=== PATIENT | female | born 2000 | race Hispanic/Latino ===

== ENCOUNTER 2020-05-10 11:07 | Emergency (ER) | payer OTHER, SELFPAY ==
[2020-05-10] MEDS ORDERED: KETOROLAC 60 MG VIAL (30MG/ML) ONE (11:59)
[2020-05-10 12:19] LABS: APPEARANCE,URINE Clear (CLEAR); BILIRUBIN,URINE Negative (NEGATIVE); COLOR,URINE Yellow (YELLOW); GLUCOSE, URINE (UA) Negative (NEGATIVE); KETONES,URINE Trace mg/dL (NEGATIVE); LEUKOCYTE ESTERASE ,URINE Trace (NEGATIVE); NITRATE,URINE Negative (NEGATIVE); OCCULT BLOOD,URINE Large (NEGATIVE); PROTEIN,URINE POS 1+ mg/dL (NEGATIVE)
[2020-05-10 12:26] LABS: HCG,QUAL RESULT NEGATIVE (NEGATIVE)
[2020-05-10 12:59] LABS: BACTERIA,URINE Few /HPF (None Seen); MUCUS,URINE Few LPF (None Seen); RBC,URINE 51-100 /HPF (0-1); SQUAMOUS EPITHELIAL CELL,UR Few /HPF (0-2)
[2020-05-10 13:04] LABS: WBC,URINE 0-1 /HPF (0-1); YEAST,URINE BUDDING Few /HPF (None Seen)
[2021-01-12] MEDS ORDERED: PREN-154 PO (02:45)
[2021-01-17] MEDS ORDERED: IBUP-2077 PO (09:22)
[2021-01-17] MEDS ORDERED: DOCU-116 PO (09:22)
== END 2020-05-10 13:47 | disposition home or self-care (01) ==
LOC: EDH 11:07
DX: M54.5 Low back pain (principal)
CPT/HCPCS: 72100; 76856; 81001; 81025; 96372; 99285; J1885

== ENCOUNTER 2020-05-16 01:38 | Emergency (ER) | payer OTHER ==
[2020-05-16 02:37] LABS: BASOPHILS % (AUTO) 0.5 % (0.0-5.0); EOSINOPHILS % (AUTO) 1.8 % (0.0-8.0); HEMATOCRIT 37.5 % (36-48); LYMPHOCYTES % (AUTO) 31.2 % (21.0-51.0); MEAN CORPUSCULAR HEMOGLOBIN 29.1 pg (27.0-33.0); MEAN CORPUSCULAR HGB CONC 32.8 g/dL (32.0-36.0); MEAN CORPUSCULAR VOLUME 88.9 fL (80-100); MONOCYTES % (AUTO) 5.2 % (3.0-13.0); NEUTROPHILS % (AUTO) 60.7 % (40.0-77.0); PLATELET COUNT (AUTO) 366 K/uL (130-400); RED BLOOD CELL COUNT(AUTO) 4.22 MIL/uL (4.00-5.50); RED CELL DISTRIBUTION WIDTH 13.7 % (11.0-15.5); WHITE BLOOD COUNT (AUTO) 12.8 K/uL (4.8-10.8)
[2020-05-16 02:45] LABS: CREATININE 0.7 mg/dL (0.5-1.5); POTASSIUM 4.3 mmol/L (3.5-5.1)
[2020-05-16 02:53] LABS: ALBUMIN 3.9 g/dL (3.5-5.0); BILIRUBIN,TOTAL 0.3 mg/dL (0.2-1.0)
[2020-05-16] MEDS ORDERED: KETOROLAC TROMETHAMINE 60 MG/2 ML VIAL ONE (02:55)
[2020-05-16 03:08] LABS: APPEARANCE,URINE Clear (CLEAR); BILIRUBIN,URINE Negative (NEGATIVE); COLOR,URINE Yellow (YELLOW); GLUCOSE, URINE (UA) Negative (NEGATIVE); KETONES,URINE Negative (NEGATIVE); LEUKOCYTE ESTERASE ,URINE Negative (NEGATIVE); NITRATE,URINE Negative (NEGATIVE); OCCULT BLOOD,URINE Large (NEGATIVE); PH,URINE 6.5 (5.0-8.0); PROTEIN,URINE Negative (NEGATIVE); UROBILINOGEN,URINE 0.2 mg/dL (0.2-1.0)
[2020-05-16 03:11] LABS: HCG,QUAL RESULT NEGATIVE (NEGATIVE)
[2020-05-16 03:14] LABS: BACTERIA,URINE None Seen /HPF (None Seen); SQUAMOUS EPITHELIAL CELL,UR Rare /HPF (0-2); WBC,URINE None Seen /HPF (0-1)
[2020-05-16] MEDS ORDERED: ORPHENADRINE CITRATE 30 MG/ML ML ONE (03:14)
== END 2020-05-16 03:29 | disposition home or self-care (01) ==
LOC: EDH 01:38
DX: M62.830 Muscle spasm of back (principal); Z79.899 Other long term (current) drug therapy
CPT/HCPCS: 36415; 80053; 81001; 81025; 85025; 96372 ×2; 99284; J1885; J2360

== ENCOUNTER 2021-01-11 14:01 | Observation (INO) | payer OTHER, MEDICAID ==
[~2021-01-11] VITALS: Ht 167.6 cm; Wt 107.5 kg
[2021-01-11 14:32] LABS: APPEARANCE,URINE CLEAR (CLEAR); BILIRUBIN,URINE NEGATIVE (NEGATIVE); COLOR,URINE YELLOW (YELLOW); GLUCOSE, URINE (UA) NEGATIVE (NEGATIVE); KETONES,URINE NEGATIVE (NEGATIVE); LEUKOCYTE ESTERASE ,URINE TRACE (NEGATIVE); NITRATE,URINE NEGATIVE (NEGATIVE); OCCULT BLOOD,URINE MODERATE (NEGATIVE); PROTEIN,URINE TRACE mg/dL (NEGATIVE); UROBILINOGEN,URINE 0.2 mg/dL (0.2-1.0)
[2021-01-11 14:41] LABS: BASOPHILS % (AUTO) 0.3 % (0.0-5.0); EOSINOPHILS % (AUTO) 1.1 % (0.0-8.0); LYMPHOCYTES % (AUTO) 19.8 % (21.0-51.0); MEAN CORPUSCULAR HEMOGLOBIN 27.7 pg (27.0-33.0); MEAN CORPUSCULAR HGB CONC 32.7 g/dL (32.0-36.0); MEAN CORPUSCULAR VOLUME 84.7 fL (80-100); MONOCYTES % (AUTO) 5.5 % (3.0-13.0); NEUTROPHILS % (AUTO) 71.9 % (40.0-77.0); PLATELET COUNT (AUTO) 343 K/uL (130-400); RED BLOOD CELL COUNT(AUTO) 3.54 MIL/uL (4.00-5.50); RED CELL DISTRIBUTION WIDTH 14.6 % (11.0-15.5); WHITE BLOOD COUNT (AUTO) 11.6 K/uL (4.8-10.8)
[2021-01-11 14:41] LABS: BACTERIA,URINE Few /HPF (None Seen); OTHER CRYSTALS,URINE SODIUM URATES 1+ /LPF (None Seen); RBC,URINE 0-1 /HPF (0-1); SQUAMOUS EPITHELIAL CELL,UR Few /HPF (0-2); TRANSITIONAL EPI CELLS,URINE Few /HPF (None Seen)
[2021-01-11 14:49] LABS: CREATININE 0.6 mg/dL (0.5-1.5); POTASSIUM 4.2 mmol/L (3.5-5.1)
[2021-01-11 14:52] LABS: INR 0.94 (0.85-1.15); PROTHROMBIN TIME 10.3 SEC (9.6-11.6)
[2021-01-11 14:53] LABS: PARTIAL THROMBOPLASTIN TIME 25.4 SEC (26.3-35.5)
[2021-01-11 14:54] LABS: ALBUMIN 2.7 g/dL (3.5-5.0); BILIRUBIN,TOTAL 0.2 mg/dL (0.2-1.0); TOTAL PROTEIN, SERUM 7.1 g/dL (6.0-8.3); URIC ACID 4.4 mg/dL (2.6-7.2)
[2021-01-11] MEDS: LACTATED RINGERS 1000ML 1,000 ML IV SCH ×3 (15:58→20:44)
[2021-01-11] MEDS ORDERED: TERBUTALINE SULFATE VIAL 1MG/ML SQ ONE (17:40)
[2021-01-11] MEDS ORDERED: TERBUTALINE SULFATE VIAL 1MG/ML SQ PRN (18:00)
[2021-01-11 19:18] VITALS: BP 127/80
[2021-01-11 23:42] VITALS: BP 121/69
[2021-01-12] MEDS ORDERED: PREN-154 PO ×2 (02:45)
[2021-01-12] MEDS: LACTATED RINGERS 1000ML 1,000 ML IV SCH ×2 (03:05→10:20)
[2021-01-12 03:07] VITALS: BP 155/91
[2021-01-12 07:09] VITALS: BP 133/79
[2021-01-12 10:59] VITALS: BP 127/80
[2021-01-12 13:56] LABS: RAPID PLASMA REAGIN NONREACTIVE (NONREACTIVE)
[2021-01-12 15:18] LABS: COLLECTION PERIOD,URINE 24 HR; TOTAL VOLUME 24HRS,URINE 4600 mL; TPROTEIN TIMED,URINE 24 mg/dL; TPROTEIN U,24HR CALC 1104 mg/24HR (0-165)
[2021-01-12 15:23] LABS: CREATININE,SERUM FOR CRCL 0.6 mg/dL (0.6-1.3)
[2021-01-12 16:14] VITALS: BP 138/84
[2021-01-13 08:15] LABS: HEPATITIS Bs ANTIGEN SCREEN P Negative (Negative)
== END 2021-01-12 17:10 | disposition home or self-care (01) ==
LOC: EDH 14:01 → LDH 14:17 → WSH 18:59
PROVIDERS: ADMIT Obstetrics & Gynecology; ATTEND Obstetrics & Gynecology
DX: O10.913 Unspecified pre-existing hypertension complicating pregnancy, third trimester (principal); Z3A.35 35 weeks gestation of pregnancy; Z91.040 Latex allergy status
CPT/HCPCS: 36415; 59025; 76805; 80053; 81001; 82575; 84156; 84550; 85025; 85384; 85610; 85730; 86592; 86701; 86850; 86900; 86901; 87340; 87390; 96360; 96361 ×3; G0378 ×27; G0379; J3105; J7120 ×4; 96372

== ENCOUNTER 2021-01-13 00:56 | Observation (INO) | payer OTHER, MEDICAID ==
[~2021-01-13] VITALS: Ht 167.6 cm; Wt 106.6 kg
[~2021-01-13 00:56] MED LIST: PREN-154 PO
[2021-01-13 00:58] VITALS: BP 158/92
[2021-01-13 01:37] LABS: APPEARANCE,URINE Clear (CLEAR); BILIRUBIN,URINE Negative (NEGATIVE); COLOR,URINE Yellow (YELLOW); GLUCOSE, URINE (UA) Negative (NEGATIVE); KETONES,URINE Negative (NEGATIVE); LEUKOCYTE ESTERASE ,URINE Trace (NEGATIVE); NITRATE,URINE Negative (NEGATIVE); OCCULT BLOOD,URINE Small (NEGATIVE); PH,URINE 7.5 (5.0-8.0); PROTEIN,URINE Trace mg/dL (NEGATIVE); UROBILINOGEN,URINE 0.2 mg/dL (0.2-1.0)
[2021-01-13 01:46] LABS: BACTERIA,URINE Rare /HPF (None Seen); RBC,URINE 0-1 /HPF (0-1); SQUAMOUS EPITHELIAL CELL,UR Rare /HPF (0-2); WBC,URINE 0-1 /HPF (0-1)
[2021-01-13] MEDS ORDERED: LACTATED RINGERS 1000ML 1,000 ML IV ONE (02:46)
[2021-01-13] MEDS ORDERED: LACTATED RINGERS 1000ML 1,000 ML IV SCH (03:30)
== END 2021-01-13 06:25 | disposition home or self-care (01) ==
LOC: EDH 00:56 → LDH 00:57
PROVIDERS: ADMIT Obstetrics & Gynecology; ATTEND Obstetrics & Gynecology
DX: O62.9 Abnormality of forces of labor, unspecified (principal); O26.893 Other specified pregnancy related conditions, third trimester; R10.30 Lower abdominal pain, unspecified; R10.2 Pelvic and perineal pain; N89.8 Other specified noninflammatory disorders of vagina; Z3A.35 35 weeks gestation of pregnancy
CPT/HCPCS: 81001; 96360; 96361; G0378 ×5; J7120

== ENCOUNTER 2021-01-14 14:47 | Inpatient (IN) | payer OTHER, MEDICAID ==
[~2021-01-14] VITALS: Ht 167.6 cm; Wt 106.1 kg
[2021-01-14] MEDS: OXYTOCIN-LR 20 UNITS/1000 ML 1,000 ML IV SCH (02:05)
[2021-01-14 15:26] VITALS: BP 135/84
[2021-01-14] MEDS ORDERED: LACTATED RINGERS 500 ML 500 ML IV PRN (15:30)
[2021-01-14] MEDS ORDERED: PROMETHAZINE HCL 25 MG/ML 1ML AMPULE IM PRN (15:30)
[2021-01-14] MEDS ORDERED: ROPIVACAINE 0.2% 100ML VIAL 100 ML EP SCH (15:30)
[2021-01-14] MEDS ORDERED: MEPERIDINE-PF 50 MG/ML SYG IVP PRN (15:30)
[2021-01-14] MEDS ORDERED: EPHEDRINE SULFATE 50 MG/ML AMPULE IVP PRN (15:30)
[2021-01-14] MEDS ORDERED: NALOXONE HCL 0.4 MG/1 ML ML IV PRN (15:30)
[2021-01-14 15:33] LABS: APPEARANCE,URINE Clear (CLEAR); BILIRUBIN,URINE Negative (NEGATIVE); COLOR,URINE Yellow (YELLOW); GLUCOSE, URINE (UA) Negative (NEGATIVE); KETONES,URINE Negative (NEGATIVE); LEUKOCYTE ESTERASE ,URINE Trace (NEGATIVE); NITRATE,URINE Negative (NEGATIVE); OCCULT BLOOD,URINE Small (NEGATIVE); PROTEIN,URINE POS 1+ mg/dL (NEGATIVE); UROBILINOGEN,URINE 0.2 mg/dL (0.2-1.0)
[2021-01-14 15:42] LABS: HEMATOCRIT 28.6 % (36-48); MEAN CORPUSCULAR HEMOGLOBIN 27.9 pg (27.0-33.0); MEAN CORPUSCULAR HGB CONC 33.2 g/dL (32.0-36.0); MEAN CORPUSCULAR VOLUME 84.1 fL (80-100); NUCLEATED RED BLOOD CELLS 0.2 % (0.0-0.19); RED BLOOD CELL COUNT(AUTO) 3.4 MIL/uL (4.00-5.50); RED CELL DISTRIBUTION WIDTH 14.6 % (11.0-15.5)
[2021-01-14 15:42] LABS: BACTERIA,URINE Few /HPF (None Seen); SQUAMOUS EPITHELIAL CELL,UR Moderate /HPF (0-2)
[2021-01-14 15:54] LABS: INR 0.94 (0.85-1.15); PROTHROMBIN TIME 10.3 SEC (9.6-11.6)
[2021-01-14 15:56] LABS: PARTIAL THROMBOPLASTIN TIME 22.9 SEC (26.3-35.5)
[2021-01-14] MEDS ORDERED: AMPICILLIN 2GM+NS 100ML 100 ML IV SCH (16:00)
[2021-01-14] MEDS ORDERED: DINOPROSTONE 10 MG VAGINAL SUPP VG SCH ×2 (16:00→19:00)
[2021-01-14 16:08] LABS: ALBUMIN 2.6 g/dL (3.5-5.0); BILIRUBIN,TOTAL 0.2 mg/dL (0.2-1.0); CREATININE 0.7 mg/dL (0.5-1.5); POTASSIUM 3.9 mmol/L (3.5-5.1); TOTAL PROTEIN, SERUM 6.8 g/dL (6.0-8.3); URIC ACID 4.3 mg/dL (2.6-7.2)
[2021-01-14] MEDS: LACTATED RINGERS 1000ML 1,000 ML IV PRN (18:46)
[2021-01-14] MEDS ORDERED: AMPICILLIN 1GM+NS 50ML 50 ML IV SCH (20:00)
[2021-01-15] MEDS: LACTATED RINGERS 1000ML 1,000 ML IV PRN ×4 (02:12→19:29)
[2021-01-15] MEDS: OXYTOCIN-LR 20 UNITS/1000 ML 1,000 ML IV SCH (03:45)
[2021-01-15] MEDS ORDERED: OXYTOCIN-LR 20 UNITS/1000 ML 1,000 ML IV SCH ×2 (06:00→08:00)
[2021-01-15] MEDS ORDERED: AMPICILLIN 2GM+NS 100ML 100 ML IV SCH (08:00)
[2021-01-15] MEDS: AMPICILLIN 1GM+NS 50ML 50 ML IV SCH ×4 (11:40→23:11)
[2021-01-15] MEDS ORDERED: MISOPROSTOL 200 MCG TABLET ONE (22:44)
[2021-01-16] MEDS ORDERED: LIDOCAINE HCL 1% 20 ML VIAL ONE ×2 (02:02→02:23)
[2021-01-16] MEDS ORDERED: IBUPROFEN 600 MG TABLET ONE (02:35)
[2021-01-16] MEDS ORDERED: BENZOCAINE/LANOLIN/ALOE VERA 60 ML AEROSOL TP ONE (02:54)
[2021-01-16] MEDS ORDERED: WITCH HAZEL 1 PAD TP ONE (02:54)
[2021-01-16] MEDS ORDERED: WITCH HAZEL 1 PAD TP PRN (04:00)
[2021-01-16] MEDS ORDERED: ACETAMINOPHEN 325 MG TAB PO PRN (04:00)
[2021-01-16] MEDS ORDERED: MEASLES/MUMPS/RUBELLA VACCINE, LIVE 0.5 ML/VIAL SQ PRN (04:00)
[2021-01-16] MEDS ORDERED: DIPH,PERTUSS(ACELL),TET VAC/PF 0.5 ML VIAL IM PRN (04:00)
[2021-01-16] MEDS: AMPICILLIN 1GM+NS 50ML 50 ML IV SCH ×2 (04:00→20:00)
[2021-01-16] MEDS ORDERED: LANOLIN 30GM OINTMENT TP PRN (04:00)
[2021-01-16] MEDS ORDERED: BENZOCAINE/LANOLIN/ALOE VERA 60 ML AEROSOL TP PRN (04:00)
[2021-01-16] MEDS: ACETAMINOPHEN WITH CODEINE 1 TAB TAB PO PRN ×2 (04:16→20:03)
[2021-01-16 04:25] VITALS: BP 137/76
[2021-01-16] MEDS ORDERED: DIPH,PERTUSS(ACELL),TET VAC/PF 0.5 ML VIAL IM ONE (06:00)
[2021-01-16] MEDS ORDERED: FLU VACC QS2021-22(6MOS UP)/PF 60 MCG/0.5 ML ML IM ONE (06:00)
[2021-01-16 07:00] VITALS: BP 130/66
[2021-01-16 07:19] LABS: HEPATITIS Bs ANTIGEN SCREEN P Negative (Negative)
[2021-01-16] MEDS: DOCUSATE SODIUM 100 MG CAP PO SCH ×2 (08:26→20:01)
[2021-01-16 10:59] VITALS: BP 119/66
[2021-01-16 16:10] VITALS: BP 117/51
[2021-01-16] MEDS: IBUPROFEN 600 MG TABLET PO PRN (16:14)
[2021-01-16 19:13] VITALS: BP 140/97
[2021-01-16 23:42] VITALS: BP 120/68
[2021-01-17 03:15] VITALS: BP 138/93
[2021-01-17] MEDS: ACETAMINOPHEN WITH CODEINE 1 TAB TAB PO PRN (06:04)
[2021-01-17 07:20] VITALS: BP 130/75
[2021-01-17] MEDS: DOCUSATE SODIUM 100 MG CAP PO SCH (08:09)
[2021-01-17] MEDS: IBUPROFEN 600 MG TABLET PO PRN (08:16)
[2021-01-17 08:38] LABS: HEMATOCRIT 27.4 % (36-48); MEAN CORPUSCULAR HEMOGLOBIN 27.7 pg (27.0-33.0); MEAN CORPUSCULAR VOLUME 89.3 fL (80-100); PLATELET COUNT (AUTO) 285 K/uL (130-400); RED BLOOD CELL COUNT(AUTO) 3.07 MIL/uL (4.00-5.50); RED CELL DISTRIBUTION WIDTH 15.2 % (11.0-15.5); WHITE BLOOD COUNT (AUTO) 16.7 K/uL (4.8-10.8)
[2021-01-17] MEDS ORDERED: DOCU-116 PO ×2 (09:22)
[2021-01-17] MEDS ORDERED: IBUP-2077 PO ×2 (09:22)
== END 2021-01-17 11:00 | disposition home or self-care (01) | DRG 806 ==
LOC: LDH 14:47 → WSH 01-16 04:15
PROVIDERS: ADMIT Obstetrics & Gynecology; ATTEND Obstetrics & Gynecology
PROC: 10E0XZZ Delivery of Products of Conception, External Approach (ICD-10-PCS; principal; 2021-01-16)
PROC: 0UQMXZZ Repair Vulva, External Approach (ICD-10-PCS; 2021-01-16)
PROC: 0UQGXZZ Repair Vagina, External Approach (ICD-10-PCS; 2021-01-16)
PROC: 10907ZC Drainage of Amniotic Fluid, Therapeutic from Products of Conception, Via Natural or Artificial Opening (ICD-10-PCS; 2021-01-16)
PROC: 3E0P7GC Introduction of Other Therapeutic Substance into Female Reproductive, Via Natural or Artificial Opening (ICD-10-PCS; 2021-01-16)
PROC: 3E033VJ Introduction of Other Hormone into Peripheral Vein, Percutaneous Approach (ICD-10-PCS; 2021-01-16)
PROC: 3E0234Z Introduction of Serum, Toxoid and Vaccine into Muscle, Percutaneous Approach (ICD-10-PCS; 2021-01-16)
PROC: 3E0R3BZ Introduction of Anesthetic Agent into Spinal Canal, Percutaneous Approach (ICD-10-PCS; 2021-01-16)
PROC: 00HU33Z Insertion of Infusion Device into Spinal Canal, Percutaneous Approach (ICD-10-PCS; 2021-01-16)
DX: O60.14X0 Preterm labor third trimester with preterm delivery third trimester, not applicable or unspecified (principal); O71.4 Obstetric high vaginal laceration alone; Z37.0 Single live birth; O24.420 Gestational diabetes mellitus in childbirth, diet controlled; O63.1 Prolonged second stage (of labor); O99.214 Obesity complicating childbirth; O71.82 Other specified trauma to perineum and vulva; Z3A.36 36 weeks gestation of pregnancy; Z23 Encounter for immunization; O13.4 Gestational [pregnancy-induced] hypertension without significant proteinuria, complicating childbirth
CPT/HCPCS: 36415; 80053; 81001; 82948; 84550; 85027; 85384; 85610; 85730; 86592; 86850; 86900; 86901; 87340; 90715; A4314; A4351; G0378; J0290; J2175; J2550; J2590; J2795; J7120